=== PATIENT | female | born 1960 | race Caucasian/White ===

== ENCOUNTER → 2020-11-16 | Outpatient (CLI) | payer OTHER, SELFPAY | END | disposition home or self-care (01) | PROVIDERS: PCP Family Medicine; Referring Provider Family Medicine; Visit Provider Family Medicine | DX: I10 Essential (primary) hypertension (principal) ==

== ENCOUNTER 2024-02-06 01:12 | Emergency (ER) | payer OTHER, SELFPAY ==
[2024-02-06 01:12] VITALS: BMI 29.2
[2024-02-06 01:17] VITALS: BP 150/89; PULSE 74; RESP 19; TEMP 36.6; O2SAT 99
--- NOTE | 2024-02-06 01:21 | XR_ITS ---
Examination: CT abdomen with intravenous contrast CT pelvis with intravenous contrast 2-D coronal reconstructions 2-D sagittal reconstructions Date and time of exam:February 06, 2024 0223 hrs. Comparison September 04, 2017 Indications: Onset right lower abdominal pain beginning 7:00 PM last night. CTDI: vol (mGy) 9.74 DLP: (mGycm) 468 Technique: Multiple axial sections of the abdomen and pelvis have been obtained. 64 slice high-resolution scanner used. 3 mm axial sections have been obtained, post intravenous injection 60 cc [id number] 2-D sagittal, coronal reconstructions obtained. Low dose protocols were performed. One or more of the following dose reduction techniques were used; automated exposure control, adjustment of the mA and/or KV according to patient size, use of iterative reconstruction technique. Findings: No focal liver or splenic lesion No pancreatic mass Minimal right hydronephrosis, 2 mm calculus right ureterovesical junction Aorta normal size Normal appendix No bowel obstruction No bladder mass Impression: Minimal right hydronephrosis secondary to 2 mm distal right ureterovesical junction calculus
--- NOTE | 2024-02-06 01:22 | PD.EDRME ---
Rapid Medical Screening Exam RME Arrival date/time: 02/06/24 01:12 63-year-old female presents emergency department complaining of right lower quadrant abdominal pain that started yesterday. Chief Complaint: Abdominal Pain Vital signs: Vital Signs Temperature 97.9 F 02/06/24 01:17 Pulse Rate 74 02/06/24 01:17 Respiratory Rate 19 02/06/24 01:17 Blood Pressure 150/89 H 02/06/24 01:17 Pulse Oximetry (%) 99 02/06/24 01:17 Oxygen Delivery Method Room Air 02/06/24 01:17 Vital signs reviewed by provider: Yes
[2024-02-06] MEDS: KETOROLAC INJ 60 MG/2 ML VIAL 30 MG IM (01:43)
[2024-02-06 01:56] LABS: Basophils % (Auto) 0 % (0-2.5); Eosinophils # (Auto) 0.1 Thou/mm3 (0.0-0.5); Eosinophils % (Auto) 1 % (0-10); Hematocrit 35.4 % (36.0-46.0); Hemoglobin 11.4 g/dL (12.0-16.0); Immature Granulocytes % (Auto) 1 % (0-0); Immature Granulocytes Auto 0.12 Thou/mm3 (0.00-0.00); Lymphocytes # (Auto) 2.5 Thou/mm3 (1.0-4.8); Lymphocytes % (Auto) 28 % (10-50); Mean Corpuscular HGB Conc 32.2 g/dl (31.0-37.0); Mean Corpuscular Hemoglobin 28.6 pg (25.0-35.0); Mean Corpuscular Volume 89 fL (80-100); Monocytes # (Auto) 0.7 Thou/mm3 (0.0-0.8); Monocytes % (Auto) 8 % (0-12); Neutrophils # (Auto) 5.6 Thou/mm3 (1.8-7.7); Neutrophils % (Auto) 62 % (37-80); Nucleated Red Blood Cell % 0 /100 WBC (0); Platelet Count 303 Thou/mm3 (140-440); RDW Standard Deviation 44.4 fL (36.4-46.3); Red Blood Count 3.99 Miln/mm3 (4.00-5.20)
--- NOTE | 2024-02-06 02:02 | PD.EDABDPN ---
ED Abdominal Pain RME/HPI General Chief Complaint: Abdominal Pain Stated complaint: RLQ PAIN NAUSEA Time seen by provider: 02/06/24 01:53 Arrival date/time: 02/06/24 01:12 RME / HPI RME / HPI narrative: 02/06/24 01:12 63-year-old female presents emergency department complaining of right lower quadrant abdominal pain that started yesterday. DR. MCWILLIAMS MAIN ED EVALUATION: 63 year old female presents to the Emergency Department with complaint of right lower quadrant pain. Pain is described as aching and rated mild to moderate in severity. Associated symptoms include nausea. PMHx: Hypertension, hypercholesterolemia. Partial hysterectomy in 2002 cervix removed and tubal ligation. Family history of heart disease. Social Hx: No tobacco, alcohol, or substance use. Related Data Home Medications ?Medication ?Instructions ?Recorded ?Confirmed hydroxychloroquine 200 mg tablet 200 mg PO BID 10/29/17 06/16/23 (Plaquenil) meloxicam 15 mg tablet (Mobic) 15 mg PO QDAY 10/29/17 06/16/23 tramadol 50 mg tablet 50 mg PO TID 10/29/17 06/16/23 cyclobenzaprine 10 mg tablet 10 mg PO HS Insomnia 12/21/20 06/16/23 pentosan polysulfate sodium 100 mg 100 mg PO TID PRN Bladder Spasms 12/21/20 06/16/23 capsule (Elmiron) propranolol 80 mg tablet 80 mg PO DAILY PRN migraines 12/21/20 06/16/23 losartan 50 mg tablet 50 mg PO QDAY 04/10/23 06/16/23 Previous Rx's ?Medication ?Instructions ?Recorded ibuprofen 600 mg tablet 600 mg PO Q6H PRN pain #30 tabs 02/06/24 tamsulosin 0.4 mg capsule 0.4 mg PO QDAY #14 caps 02/06/24 Allergies Allergy/AdvReac Type Severity Reaction Status Date / Time Influenza Virus Vaccines Allergy Severe Swelling Verified 06/16/23 07:45 of Lip/Tongue/Throat Penicillins Allergy Severe Anaphylaxis Verified 06/16/23 07:45 Review of Systems Review of Systems Systems Reviewed: All systems reviewed, normal except as documented Narrative Review of Systems: GEN: No fever, no chills, no weight loss EYES: No discharge, no visual changes, no pain HEENT: No ear pain, no congestion, no sore throat PULM: No shortness of breath, no cough, no congestion CV: No chest pain, no dyspnea on exertion, no palpitations GI: + nausea, no vomiting, no diarrhea, + right lower quadrant pain, no constipation : No frequency, no urgency and no dysuria MUSC/SKEL: No joint pain, no back pain SKIN: No rash PSYCH: No hallucinations, no depression HEME/LYMPH: No easy bleeding or bruising tendencies NEURO: No weakness, no headache Past Medical History Past Medical History NEUROLOGIC: Positive Neurological Disorders and Migraine (controlled migranes) CARDIAC: Positive Hypertension GASTROINTESTINAL: Positive Ulcer GENITOURINARY: Positive Genitourinary Disorders (HYDRONEPHROSIS in past) and Kidney Stones (in past) REPRODUCTIVE: Positive Previous Pregnancies () MUSCULOSKELETAL: Positive Musculoskeletal Disorders and Arthritis ENDOCRINE: Positive Endocrine Disorders and Systemic Lupus Erythematosus PSYCHO/SOCIAL: Positive Depression (in past) OTHER HISTORY: Positive Hospitalization, Chicken Pox and Mumps Family History FAMILY HISTORY: Positive Family Respiratory Disorders (MOM-COPD), Family Cardiac Disorders (PARENTS), Family Gastrointestinal Problems (FATHER) and Family Cancer (FATHER(STOMACH)) Surgical History SURGICAL: Positive Hysterectomy (PARTIAL 2003 cervix removed) and Tubal Ligation Social History SMOKING STATUS: Never smoker SUBSTANCE USE: does not use ALCOHOL: Never ED Exam Narrative Physical exam: GENERAL APPEARANCE: alert and oriented x 4, well-developed, well-nourished, no acute distress VITALS: All vitals were reviewed and the pulse ox is 99% on room air, which is normal according to my interpretation. HEENT: Normocephalic, atraumatic; pupils equal, round, reactive to light; EOMI; mucous membranes pink, moist; oropharynx clear NECK: Supple LUNGS: CTABL; no wheezes, no rales, no rhonchi HEART: Regular rate, regular rhythm; normal S1, S2; no murmurs ABDOMEN: non distended; normal BS; soft, no tenderness, no guarding, no rebound; no masses, no organomegaly, no hernia BACK: no CVA tenderness EXTREMITIES: atraumatic; no edema NEUROLOGIC: awake; alert and oriented x4; cranial nerves II-XII grossly intact; no focal sensory or motor deficits PSYCHIATRIC: appropriate mood and affect SKIN: warm, dry, normal color; no rashes Course Quality Measures none Orders Category Date Time Status CT Screening NOW Care 02/06/24 01:[address] abdomen pelvis w con Stat Exams 02/06/24 01:21 Completed CBC Stat Lab 02/06/24 01:39 Completed CMP [Comprehensive Metabolic Panel] Stat Lab 02/06/24 01:39 Completed Lipase Stat Lab 02/06/24 01:39 Completed Urinalysis, C/S if Indicated Stat Lab 02/06/24 02:40 Completed HYDROcodone*/APAP 5/325 [[place] 5/325] Med 02/06/24 04:03 Discontinued 1 tab PO X1 ONE Ketorolac Inj [Toradol Inj] Med 02/06/24 01:21 Discontinued 30 mg IM X1 ONE Morphine Inj Med 02/06/24 02:13 Discontinued 5 mg IVP X1 ONE Ondansetron Inj [Zofran Inj] Med 02/06/24 02:13 Discontinued 4 mg IV X1 ONE Tamsulosin HCl [Flomax] Med 02/06/24 04:00 Discontinued 0.4 mg PO X1 ONE Reevaluation(s) Reevaluation #1: Patient remains clinically stable throughout the emergency department visit. Re-assessment at the time of disposition demonstrates that the patient is in no acute distress. We reviewed all the results, analysis, and treatment plans. Patient is amenable to discharge. Strict return precautions were outlined. Patient was discharged in stable condition. Time: 04:00 Vital Signs Vital signs: Vital Signs Temperature 97.9 F 02/06/24 01:17 Pulse Rate 74 02/06/24 01:17 Respiratory Rate 19 02/06/24 01:17 Blood Pressure 150/89 H 02/06/24 01:17 Pulse Oximetry (%) 99 02/06/24 01:17 Oxygen Delivery Method Room Air 02/06/24 01:17 Abdominal Pain MDM MDM Narrative MDM Narrative:: IAlicia am scribing for and in the presence of Dr. Mcwilliams. Patient data External records reviewed:: [facility] previous records (Reviewed colonoscopy note by Dr. Garvin dated 06/16/23.) Clinical information provided by:: patient Social determinants that could affect healthcare access:: none Patient has the following chronic illnesses:: Hypertension, hypercholesterolemia. Partial hysterectomy in 2002 cervix removed and tubal ligation. Family history of heart disease. How is presenting disease/condition affected by chronic disease/condition?: exacerbated by Evaluation data The following diagnostics were reviewed and interpreted by me:: lab results and radiology exam(s) Lab and/or radiology exams considered but not ordered:: none Interpretation Summary: Procedure(s): CT abdomen pelvis w con Accession Number(s): [id number] cc: Edd Stanton MD; Paul Spencer MD; Elysia Flores (CITY SECRETARY),Arjun TAVERAS~ Examination: CT abdomen with intravenous contrast CT pelvis with intravenous contrast 2-D coronal reconstructions 2-D sagittal reconstructions Date and time of exam:February 06, 2024 0223 hrs. Comparison September 04, 2017 Indications: Onset right lower abdominal pain beginning 7:00 PM last night. CTDI: vol (mGy) 9.74 DLP: (mGycm) 468 Technique: Multiple axial sections of the abdomen and pelvis have been obtained. 64 slice high-resolution scanner used. 3 mm axial sections have been obtained, post intravenous injection 60 cc [id number] 2-D sagittal, coronal reconstructions obtained. Low dose protocols were performed. One or more of the following dose reduction techniques were used; automated exposure control, adjustment of the mA and/or KV according to patient size, use of iterative reconstruction technique. Findings: No focal liver or splenic lesion No pancreatic mass Minimal right hydronephrosis, 2 mm calculus right ureterovesical junction Aorta normal size Normal appendix No bowel obstruction No bladder mass Impression: Minimal right hydronephrosis secondary to 2 mm distal right ureterovesical junction calculus Dictated By: Edd Stanton MD Medications / Prescriptions Medications or Prescriptions considered but not ordered:: none Medication administrations:: Medication Administration History Discontinued Medications Hydrocodone Bitart/Acetaminophen (Hydrocodone/Apap 5/325 Tablet) 1 tab PO X1 ONE Stop: 02/06/24 04:04 Ketorolac Tromethamine (Ketorolac Inj 60 Mg/2 Ml Vial) 30 mg IM X1 ONE Stop: 02/06/24 01:22 Last Admin: 02/06/24 01:43 Dose: 30 mg Documented By: OA Morphine Sulfate (Morphine Sulf Inj 10 Mg/Ml Vial) 5 mg IVP X1 ONE Stop: 02/06/24 02:14 Last Admin: 02/06/24 03:01 Dose: 5 mg Documented By: BB Ondansetron HCl (Ondansetron Inj 2 Mg/Ml Inj 2 Ml) 4 mg IV X1 ONE Stop: 02/06/24 02:14 Last Admin: 02/06/24 03:01 Dose: 4 mg Documented By: HUE Tamsulosin HCl (Tamsulosin Hcl 0.4 Mg Capsule) 0.4 mg PO X1 ONE Stop: 02/06/24 04:01 see above Consultations Consultation(s) initiated? (list below): No Diagnosis Differential diagnosis abdominal pain: abdominal pain, constipation, small bowel obstruction and other (appendicitis) Most likely diagnosis given after review of the tests above:: Right ureteral calculus Admission Indicated Admission indicated?: not indicated Admission Request Was there a request for admission?: No Disposition Plan Disposition Plan: Discharge Discharge Attestation Discharge Attestation: The patient and all family members were given an opportunity to ask questions and understood the discharge instructions. Discharge instructions specifically effects, indications for sooner follow up or return to the emergency department, and the expected course of current diagnosis. Patient condition: Stable Discharge Plan Plan Patient Disposition: HOME (Self Care) Prescriptions/Referrals Prescriptions/Med Rec: New tamsulosin 0.4 mg capsule 0.4 mg PO QDAY Qty: 14 0RF ibuprofen 600 mg tablet 600 mg PO Q6H PRN (Reason: pain) Qty: 30 0RF No Action meloxicam [Mobic] 15 mg tablet 15 mg PO QDAY Hold Instructions: Resume on 12/26/20. tramadol 50 mg tablet 50 mg PO TID Hold Instructions: Resume on 06/17/23. hydroxychloroquine [Plaquenil] 200 mg tablet 200 mg PO BID cyclobenzaprine 10 mg Tablet 10 mg PO HS propranolol 80 mg Tablet 80 mg PO DAILY PRN (Reason: migraines) Elmiron 100 mg Capsule 100 mg PO TID PRN (Reason: Bladder Spasms) losartan 50 mg Tablet 50 mg PO QDAY Referrals: Temporary Provider,ED [Physician] - In 1 week Problem List Clinical Impression: Right ureteral calculus Patient/Caregiver Discharge Instructions Education Materials: ED Kidney Stone w/ Colic Print Language: Singaporean Stand Alone Forms: Annie Award Info., Patient Portal Info Letter
[2024-02-06 02:09] LABS: Alanine Aminotransferase 15 U/L (10-49); Albumin, Serum 4.3 gm/dL (3.4-4.8); Albumin/Globulin Ratio 1.7 (1.2-2.2); Alkaline Phosphatase 88 U/L (46-116); Anion Gap 8 (7-16); Aspartate Amino Transferase 12 U/L (0-34); BUN/Creatinine Ratio 24 Ratio (12-20); Bilirubin,Total 0.4 mg/dL (0.3-1.2); Blood Urea Nitrogen 19 mg/dL (9-23); Calcium 9.9 mg/dL (8.3-10.6); Calcium (Corrected) 9.9 mg/dL (8.5-10.1); Carbon Dioxide 29.3 mMol/L (20.0-31.0); Chloride 106 mMol/L (98-107); Creatinine (Component) 0.8 mg/dL (0.6-1.3); Estimated Creatinine Clearance 62.7 mL/min (>60); Globulin 2.6 gm/dL (2.3-3.5); Glucose 128 mg/dL (74-106); Lipase 115 U/L (12-53); Osmolality,Calculated 289 (275-295); Sodium 143 mMol/L (136-145); Total Protein 6.9 gm/dL (5.7-8.2); eGFR > 60 See Note
[2024-02-06] MEDS: ONDANSETRON INJ 2 MG/ML INJ 2 ML 4 MG IV (03:01)
[2024-02-06] MEDS: MORPHINE SULF INJ 10 MG/ML VIAL 5 MG IVP (03:01)
[2024-02-06 03:02] LABS: Collection Type, Urine Clean Catch
[2024-02-06 03:10] LABS: Bilirubin,Urine Negative (Negative); Blood,Urine 3+ (Negative); Clarity,Urine Clear (Clear/Hazy); Color,Urine Lt-Yellow (Lt Yel-Yel); Culture Indicated,Urine Not Indicated; Glucose, Urine Negative (Negative); Ketones,Urine Negative (Negative); Leukocyte Esterase,Urine Negative (Negative); Nitrite,Urine Negative (Negative); PH,Urine 6.5 (5.0-7.0); Protein,Urine Trace (Neg - Trace); RBC,Urine 82 /hpf (0-3); Squamous Epithelial Cell,Urine < 1 /hpf (0-5); Urobilinogen,Urine Negative mg/dL (0.0-1.0); WBC,Urine 3 /hpf (0-5)
--- NOTE | 2024-02-06 03:20 | PRELIM_ITS ---
CT scan of the abdomen and pelvis with intravenous contrast (axial sections with sagittal and coronal reformats) February 06, 2024 0223 hoursClinical History: Right lower quadrant abdominal painFindings :The lung bases are clear.Thickening versus underdistention of the stomach.The stomach is distended w ith food residue. There is a 2 mm obstructing calculus at the right ureterovesical junction causing m ild hydroureteronephrosis (coronal images 73/152) and periureteric/perinephric fat stranding. The sebastian er, gallbladder, pancreas, spleen, left kidney and adrenals are unremarkable.No evidence of bowel obs truction. There are multiple colonic diverticula without evidence of diverticulitis. The appendix is within normal limits (images 63-70/152). There is no mesenteric or retroperitoneal adenopathy.The uri nary bladder is unremarkable. There is no free fluid or free air.Uterus is not visualized. There is a compression deformity of the L3 vertebral body with vertebroplasty.Postoperative changes are noted i n the lower lumbar spine.Degenerative changes are identified in the spine. Impression:No evidence of appendicitis.2 mm obstructing calculus at the right ureterovesical junction causing mild hydrouretero nephrosis. Report Electronically Signed By: Damon Cormier 02/06/2024 3:20:14 AM [EST]
--- NOTE | 2024-02-06 04:15 | PC.NURSE ---
patient given instructions and education. Patient left with spouse in a private vehicle.
[2024-02-06 04:20] VITALS: RESP 18
== END 2024-02-06 04:21 | disposition home or self-care (01) ==
PROVIDERS: Emergency Provider Emergency Medicine; PCP Family Medicine
DX: N13.2 Hydronephrosis with renal and ureteral calculous obstruction (principal)
CPT/HCPCS: 36415; 74177; 80053; 81001; 83690; 85025; 96372; 99285; A4649; J1885; J2270; J2405; Q9967

== ENCOUNTER → 2024-04-05 | Outpatient (CLI) | payer OTHER, SELFPAY ==
[2024-04-05 15:46] LABS: Amphetamine/Methamp Scrn,U Negative (Negative); Barbiturate Screen,Urine Negative (Negative); Benzodiazepines Screen,Urine Negative (Negative); Benzoylecgonine Screen, Ur Negative (Negative); Fentanyl Screen,Urine Negative (Negative); Opiate Screen,Urine Negative (Negative); THC Screen,Urine Negative (Negative)
== END | disposition home or self-care (01) ==
LOC: SLDO 14:53
PROVIDERS: PCP Family Medicine; Referring Provider Family Medicine; Visit Provider Family Medicine
DX: Z79.891 Long term (current) use of opiate analgesic (principal)
CPT/HCPCS: 80307

== ENCOUNTER → 2024-04-07 | Outpatient (BNVA) | payer OTHER, SELFPAY | END | disposition home or self-care (01) | PROVIDERS: PCP Family Medicine; Referring Provider Family Medicine; Visit Provider Urology | DX: N13.2 Hydronephrosis with renal and ureteral calculous obstruction (principal); I10 Essential (primary) hypertension; Z87.440 Personal history of urinary (tract) infections | CPT/HCPCS: 81003; 99212; G0463 ==

== ENCOUNTER → 2024-04-21 | Outpatient (CLI) | payer OTHER, SELFPAY ==
--- NOTE | 2024-04-21 | XR_ITS ---
Examination: Ribs, bilateral, with PA chest, 4 views Technique: Chest PA, RIBS AP, RPO, LPO, 4 views Exam date and time: April 21, 2024 1201 hrs. Indications: Bilateral rib pain post Heimlich procedure 5 days ago Findings: Normal heart size No pneumothorax No pulmonary contusion Prominent osteopenia No acute displaced rib fractures Impression: No pneumothorax pulmonary contusion or hemothorax No rib fractures noted
--- NOTE | 2024-04-21 | XR_ITS ---
Examination: Thoracic spine 3 views Technique one AP lateral coned lateral upper dorsal spine 3 views Exam date and time: April 21, 2024 1211 hrs. Indications: Back pain post Heimlich procedure for choking 5 days ago. Findings: Prominent osteopenia No acute thoracic fracture Partial visualization kyphoplasty L2 Impression: No acute thoracic fracture
== END | disposition home or self-care (01) ==
PROVIDERS: PCP Family Medicine; Referring Provider Family Medicine; Visit Provider Family Medicine
DX: S20.20XA Contusion of thorax, unspecified, initial encounter (principal); S20.219A Contusion of unspecified front wall of thorax, initial encounter; X58.XXXA Exposure to other specified factors, initial encounter
CPT/HCPCS: 71111; 72072

== ENCOUNTER → 2024-06-07 | Outpatient (CLI) | payer OTHER, SELFPAY ==
--- NOTE | 2024-06-07 09:40 | XR_ITS ---
Examination:Right hip AP, lateral, AP pelvis 3 views Technique: Hip AP lateral, AP pelvis, 3 views Exam date and time:June 07, 2024 1051 hours INDICATIONS: Right hip pain beginning 2 months ago. FINDINGS: Moderate osteopenia. Minimal narrowing hip joints Greater trochanteric bursitis right hip No right or left hip fracture Bones of the pelvis intact IMPRESSION: Greater trochanteric bursitis right hip Minimal narrowing hip joints.
--- NOTE | 2024-06-07 09:40 | XR_ITS ---
Examination: Lumbar spine, 5 views Technique: Lumbar spine AP, lateral, coned lateral lower lumbar spine, bilateral obliques 5 views Exam date and time: June 07, 2024 1051 hours Comparison 10/28/2022 INDICATIONS: Lower back pain 2 months, history surgery lumbar spine 2016. FINDINGS: Severe osteopenia Again noted transpedicular fusion L4-L5 with satisfactory alignment Kyphoplasty chronic osteoporotic compressed L3 vertebral body Moderate to advanced degenerative disc disease L5-S1 IMPRESSION: No acute fracture Advanced degenerative disc disease L5-S1
[2024-06-07 11:35] LABS: Basophils % (Auto) 1 % (0-2.5); Eosinophils # (Auto) 0.1 Thou/mm3 (0.0-0.5); Eosinophils % (Auto) 2 % (0-10); Hematocrit 39.1 % (36.0-46.0); Hemoglobin 12.7 g/dL (12.0-16.0); Immature Granulocytes % (Auto) 0 % (0-0); Immature Granulocytes Auto 0.01 Thou/mm3 (0.00-0.00); Lymphocytes # (Auto) 1.5 Thou/mm3 (1.0-4.8); Lymphocytes % (Auto) 40 % (10-50); Mean Corpuscular HGB Conc 32.5 g/dl (31.0-37.0); Mean Corpuscular Volume 92 fL (80-100); Monocytes # (Auto) 0.3 Thou/mm3 (0.0-0.8); Monocytes % (Auto) 9 % (0-12); Neutrophils # (Auto) 1.9 Thou/mm3 (1.8-7.7); Neutrophils % (Auto) 49 % (37-80); Nucleated Red Blood Cell % 0 /100 WBC (0); Platelet Count 239 Thou/mm3 (140-440); RDW Standard Deviation 46.5 fL (36.4-46.3); Red Blood Count 4.23 Miln/mm3 (4.00-5.20); White Blood Count 3.8 Thou/mm3 (3.6-11.0)
[2024-06-07 11:57] LABS: T4 (Thyroxine) 9.9 mcg/dL (4.5-10.9)
[2024-06-07 11:58] LABS: Alanine Aminotransferase 17 U/L (10-49); Albumin, Serum 4.3 gm/dL (3.4-4.8); Alkaline Phosphatase 89 U/L (46-116); Anion Gap 7 (7-16); Aspartate Amino Transferase 29 U/L (0-34); BUN/Creatinine Ratio 18 Ratio (12-20); Bilirubin,Total 0.6 mg/dL (0.3-1.2); Blood Urea Nitrogen 14 mg/dL (9-23); Calcium 9.1 mg/dL (8.3-10.6); Calcium (Corrected) 9.1 mg/dL (8.5-10.1); Carbon Dioxide 29.3 mMol/L (20.0-31.0); Cardiac Risk Estimate 2.1 RATIO (3.7-5.6); Chloride 108 mMol/L (98-107); Cholesterol 219 mg/dL (132-200); Creatinine (Component) 0.8 mg/dL (0.6-1.3); Globulin 2.2 gm/dL (2.3-3.5); Glucose 85 mg/dL (74-106); HDL Cholesterol 102 mg/dL (40-60); LDL Cholesterol,Calculated 104 mg/dL (0-130); Osmolality,Calculated 286 (275-295); Potassium 4.4 mMol/L (3.4-5.1); Sodium 144 mMol/L (136-145); Total Protein 6.5 gm/dL (5.7-8.2); Triglycerides 66 mg/dL (30-150); eGFR > 60 See Note
== END | disposition home or self-care (01) ==
LOC: COPL 09:21
PROVIDERS: PCP Family Medicine; Referring Provider Family Medicine; Visit Provider Family Medicine
DX: Z00.01 Encounter for general adult medical examination with abnormal findings (principal); I10 Essential (primary) hypertension; M25.551 Pain in right hip; M32.10 Systemic lupus erythematosus, organ or system involvement unspecified; M54.50 Low back pain, unspecified; R79.9 Abnormal finding of blood chemistry, unspecified
CPT/HCPCS: 36415; 72110; 73502; 80053; 80061; 84436; 84443; 85025

== ENCOUNTER 2024-07-04 10:30 | Day surgery (SDC) | payer OTHER, SELFPAY ==
--- NOTE | 2024-07-01 11:10 | EKG_ITS ---
[facility] Test Date: 2024-07-01 Pat Name: SAEID HOPKINS Department: Room: - Gender: Female Fullerette: [facility] : 1960 Requested By: Yuriy Garvin Order Number: [id number] Reading MD: Yuriy Garvin Measurements Intervals [place] Rate: 68 P: 48 CA: 131 QRS: 34 QRSD: 94 T: 41 QT: 431 QTc: 461 Interpretive Statements SINUS RHYTHM LOW QRS VOLTAGE IN PRECORDIAL LEADS [QRS DEFLECTION < 1.0 mV IN CHEST LEADS] Compared to ECG 04/09/2023 10:41:17 Low QRS voltage now present /store/S0/[id number]/ecg/[id number].pdf
[2024-07-01 11:45] LABS: Alanine Aminotransferase 15 U/L (10-49); Albumin, Serum 4.5 gm/dL (3.4-4.8); Albumin/Globulin Ratio 1.7 (1.2-2.2); Alkaline Phosphatase 102 U/L (46-116); Anion Gap 8 (7-16); Aspartate Amino Transferase 31 U/L (0-34); BUN/Creatinine Ratio 11 Ratio (12-20); Bilirubin,Total 0.6 mg/dL (0.3-1.2); Blood Urea Nitrogen 10 mg/dL (9-23); Calcium 9.2 mg/dL (8.3-10.6); Calcium (Corrected) 9.2 mg/dL (8.5-10.1); Carbon Dioxide 27.7 mMol/L (20.0-31.0); Chloride 107 mMol/L (98-107); Creatinine (Component) 0.9 mg/dL (0.6-1.3); Globulin 2.6 gm/dL (2.3-3.5); Glucose 87 mg/dL (74-106); Osmolality,Calculated 282 (275-295); Partial Thromboplastin Time 26.2 Seconds (22.0-36.0); Potassium 4.5 mMol/L (3.4-5.1); Prothrombin Time 10.9 Seconds (9.0-12.2); Sodium 143 mMol/L (136-145); Total Protein 7.1 gm/dL (5.7-8.2); eGFR > 60 See Note
[2024-07-04] VITALS (7 sets, daily range): BP systolic 120–176; BP diastolic 75–104; PULSE 76–85; RESP 12–18; TEMP 36.4–36.7; O2SAT 95–100; BMI 30.7
[2024-07-04] MEDS: RINGERS LACTATED 1000 ML 1,000 ML 20 ML IV (12:29)
--- NOTE | 2024-07-04 14:18 | SUR.PHASEII ---
1315 Pt more awake and alert. Denies pain, N/V or difficulty swallowing. Yarely PO fluids. 1335 Pt assessment unchanged. No complaints. Amb with steady gait. Able to dress self. Pt and given dc instructions. Both state understanding. Pt meets dc criteria-to home.
== END 2024-07-04 13:35 | disposition home or self-care (01) ==
PROVIDERS: PCP Family Medicine; Referring Provider Specialist; Visit Provider Specialist
PROC: (CPT 43239; principal; 2024-07-04 11:15)
DX: K22.2 Esophageal obstruction (principal); K20.90 Esophagitis, unspecified without bleeding; K29.70 Gastritis, unspecified, without bleeding; M32.9 Systemic lupus erythematosus, unspecified; Z79.899 Other long term (current) drug therapy; Z01.810 Encounter for preprocedural cardiovascular examination
CPT/HCPCS: 43248; 43239; 36415; 80053; 85610; 85730; 93005; A4649; C1769; J7120

== ENCOUNTER → 2024-07-08 | Outpatient (BNVA) | payer OTHER, SELFPAY | END | disposition home or self-care (01) | PROVIDERS: PCP Family Medicine; Referring Provider Family Medicine; Visit Provider Urology | DX: R35.0 Frequency of micturition (principal); R30.0 Dysuria; R39.198 Other difficulties with micturition; R33.9 Retention of urine, unspecified; I10 Essential (primary) hypertension | CPT/HCPCS: 81003; 99212; G0463 ==

== ENCOUNTER → 2024-08-11 | Outpatient (CLI) | payer OTHER, SELFPAY ==
--- NOTE | 2024-08-11 09:30 | XR_ITS ---
Examination: Breast ultrasound, unilateral, right complete Date and time of exam: 08/11/2024 0948 hours INDICATIONS: Right breast sonogram September 16, 2023 9:00 nodule with breast biopsy marker 13 x 5 x 8 mm Technique: Real-time be scale ultrasonographic imaging performed right breast including all 4 quadrants as well as nipple retroareolar and axillary region. Findings: 10:00 circumscribed nodule 10 x 4 x 8 mm IMPRESSION: BI-RADS Category 2: Benign findings
--- NOTE | 2024-08-11 10:00 | XR_ITS ---
Examination: Screening digital mammography, bilateral Computer aided detection 3-D breast Tomosynthesis, bilateral Date and time of exam: August 11, 2024 1006 hours Compared to mammograms dating to September 27, 2018 Indication: Screening Technique: Nonmagnified MLO, CC views of the breasts to been obtained, reconstructed from 3-D Tomosynthesis images. R2 computer aided detection program utilized for evaluation of suspicious masses and/or abnormal calcifications. 3-D Tomosynthesis images obtained. Findings: Scattered areas of fat density Breast biopsy marker upper outer right breast 6 mm focal asymmetry outer left breast CC view, 7.2 cm multiple Impression: Category 0: Incomplete: Need additional imaging evaluation 6 mm focal asymmetry outer left breast CC view, 7 2 cm from the nipple Recommend follow-up spot tomographic views upper outer quadrant left breast left breast sonography to complete workup
== END | disposition home or self-care (01) ==
PROVIDERS: PCP Family Medicine; Referring Provider Family Medicine; Visit Provider Family Medicine
DX: Z12.31 Encounter for screening mammogram for malignant neoplasm of breast (principal); N64.89 Other specified disorders of breast
CPT/HCPCS: 76641; 77063; 77067

== ENCOUNTER → 2024-08-22 | Outpatient (BNVA) | payer OTHER, SELFPAY | END | disposition home or self-care (01) | PROVIDERS: PCP Family Medicine; Referring Provider Family Medicine; Visit Provider Urology | DX: N32.89 Other specified disorders of bladder (principal); N35.92 Unspecified urethral stricture, female; I10 Essential (primary) hypertension; M32.9 Systemic lupus erythematosus, unspecified; G89.4 Chronic pain syndrome; R10.2 Pelvic and perineal pain | CPT/HCPCS: 52224; 81003; 96372; A4217; A4649; C1894; J1580; A9270 ==

== ENCOUNTER → 2024-09-01 | Outpatient (CLI) | payer OTHER, SELFPAY ==
--- NOTE | 2024-09-01 | XR_ITS ---
Examination: Knee, right , 3 views Technique: Knee AP, lateral, oblique 3 views Date and time of exam: September 01, 2024 1223 hours INDICATIONS: Patient fell one month ago with injury to the knee, knee pain. FINDINGS: Moderate osteopenia. No fracture or dislocation. Moderate to advanced medial joint space IMPRESSION: No fracture or dislocation
--- NOTE | 2024-09-01 12:30 | XR_ITS ---
Examination: Breast ultrasound, unilateral, left complete Date and time of exam: September 01, 2024 1137 hours INDICATIONS: Mammogram August 11, 2024 6 mm focal asymmetry outer left breast Technique: Real-time be scale ultrasonographic imaging performed left breast including all 4 quadrants as well as nipple retroareolar and axillary region. Findings: No cystic or solid mass IMPRESSION: BI-RADS Category 1: Negative study
--- NOTE | 2024-09-01 13:15 | XR_ITS ---
Examination: Diagnostic digital mammography, unilateral, left Computer aided detection 3-D breast Tomosynthesis, unilateral Date and time of exam: September 01, 2024 1149 hours INDICATIONS: Mammogram 04/13/2024 6 mm focal asymmetry outer left breast 7.2 cm the nipple Technique: Nonmagnified MLO, CC views of the left breast have been obtained, reconstructed from 3-D Tomosynthesis images. R2 computer aided detection program utilized for evaluation of suspicious masses and/or abnormal calcifications. 3-D Tomosynthesis images obtained. Findings: Scattered areas of fibroglandular density. No suspicious mass is depicted on the spot compression views Impression: BI-RADS category 2: Benign findings Return to yearly follow-up mammography
== END | disposition home or self-care (01) ==
PROVIDERS: PCP Nurse Practitioner Family; Referring Provider Nurse Practitioner Family; Visit Provider Nurse Practitioner Family
DX: R92.322 Mammographic fibroglandular density, left breast (principal)
CPT/HCPCS: 73562; 76641; 77061; 77065; G0279

== ENCOUNTER 2024-10-05 07:25 | Day surgery (SDC) | payer OTHER, SELFPAY ==
[2024-10-04 09:11] VITALS: BMI 30.8
[2024-10-04 11:36] LABS: Alanine Aminotransferase 11 U/L (10-49); Albumin, Serum 4.3 gm/dL (3.4-4.8); Albumin/Globulin Ratio 1.9 (1.2-2.2); Alkaline Phosphatase 93 U/L (46-116); Anion Gap 8 (7-16); Aspartate Amino Transferase 27 U/L (0-34); BUN/Creatinine Ratio 19 Ratio (12-20); Bilirubin,Total 0.5 mg/dL (0.3-1.2); Blood Urea Nitrogen 17 mg/dL (9-23); Calcium 9.2 mg/dL (8.3-10.6); Calcium (Corrected) 9.2 mg/dL (8.5-10.1); Carbon Dioxide 27.0 mMol/L (20.0-31.0); Chloride 107 mMol/L (98-107); Creatinine (Component) 0.9 mg/dL (0.6-1.3); Estimated Creatinine Clearance 56.5 mL/min (>60); Globulin 2.3 gm/dL (2.3-3.5); Glucose 74 mg/dL (74-106); Osmolality,Calculated 283 (275-295); Potassium 4.4 mMol/L (3.4-5.1); Sodium 142 mMol/L (136-145); Total Protein 6.6 gm/dL (5.7-8.2); eGFR > 60 See Note
[2024-10-05] VITALS (9 sets, daily range): BP systolic 123–148; BP diastolic 72–99; PULSE 75–98; RESP 12–20; TEMP 36.3–36.4; O2SAT 98–100; BMI 29.8
--- NOTE | 2024-10-05 08:20 | CHAP ---
Spoke briefly with patient giving encouragement and prayer.
[2024-10-05] MEDS: RINGERS LACTATED 1000 ML 1,000 ML 20 ML IV (08:28)
--- NOTE | 2024-10-05 11:03 | SUR.PHASEI ---
1101 patient arrived to recovery resting comfortably in [facility], on oxygen 2L via nasal cannula, breathing unlabored, vital signs stable, denies pain, urinary catheter 16F in place with leg secure, pink urine in matos bag, denies nausea, report received from Chuy ELAINE and Dr. Meyer
--- NOTE | 2024-10-05 11:19 | PD.SUROPNT ---
Date of Procedure 10/05/24 Pre Op Diagnosis Chronic pelvic pain syndrome, incomplete bladder emptying, urethral stenosis interstitial cystitis Post Op Diagnosis Same plus severe interstitial cystitis and bladder ulcers Procedure Cystoscopic examination urethral dilation, [place] dilation for diagnostic and therapeutic purposes biopsy and fulguration of the lesion and fulguration of bladder ulcers and placement of a Johnson catheter Findings Urethral stenosis, bladder ulcers and interstitial cystitis Procedure Description Indication for procedure this is a 64-year-old female she has chronic pelvic pain syndrome with a history of endometriosis. Patient has history of urethral stenosis had dilation in the past. Patient was recommended above procedure procedure and complications were discussed with patient in great detail informed consent is obtained this is a 64-year-old female she was brought to the operating room in a satisfactory condition after appropriate premedication. She was appropriately identified by surgeon and operating room staff site scope and indication of the procedure were reconfirmed with the patient The patient received 160 mg Gentamicin IV pre-op prophylaxis. General anesthesia was given uneventfully patient was positioned in a dorsolithotomy position. The patient was prepped in a sterile manner. Local anesthetic was placed in the urethra. Cystoscopy was then performed. The urethra had no intrinsic lesions. Bladder was filled with 300 cc of water emptied and cystoscopy was done again this revealed severe interstitial cystitis and bladder ulcers biopsy was obtained fulguration was done and fulguration of the ulcers were done as well further examination of the bladder revealed no evidence of cancerous lesions, papillary or polyp type, lesions or stones. Both ureters were putting out clear urine. The urethra had mid urethral stenosis and the urethra was dilated up to 30Fr with dilators. The bladder was completely drained and the scope was removed. The patient tolerated the procedure well. #16 Johnson catheter was inserted patient was sent to recovery room in a satisfactory condition post-op instructions were given. The patient is to call the office should any problems occur. Anesthesia GETA Pathology / specimen Other (Bladder biopsy) Estimated Blood Loss 0.5 Condition Stable Disposition PACU Surgeon Maki Heard MD Surgical Staff Operation Date: 10/05/24 09:45 Case Staff Anesthesiologist: Padilla Meyer
--- NOTE | 2024-10-05 12:34 | SUR.PHASEII ---
1234 Patient meets discharge criteria from recovery, awake and alert, breathing unlabored, vital signs stable, denies pain and nausea, assisted with dressing into her clothing by her , discharge instructions given to patient and patients , and patient both educated on home care for catheter; both receptive, signed discharge instructions. Patient given all her belongings prior to discharge, transported via wheelchair and left in a private vehicle.
== END 2024-10-05 12:34 | disposition home or self-care (01) ==
PROVIDERS: Anesthesiology; PCP Family Medicine; Referring Provider Urology; Visit Provider Urology
PROC: 0T7B8ZZ Dilation of Bladder, Via Natural or Artificial Opening Endoscopic (ICD-10-PCS; CPT 52224; principal; 2024-10-05 09:30)
DX: N30.10 Interstitial cystitis (chronic) without hematuria (principal); N35.92 Unspecified urethral stricture, female; G89.4 Chronic pain syndrome; R10.2 Pelvic and perineal pain
CPT/HCPCS: 52224; 36415; 80053; A4217; A4649; J0131; J1580; J1885; J2250; J2704; J3010; J3490; J7120

== ENCOUNTER → 2024-10-12 | Outpatient (CLI) | payer OTHER, SELFPAY ==
--- NOTE | 2024-10-12 13:00 | XR_ITS ---
Examination: Steroid injection greater trochanteric bursa right hip with imaging guidance Fluoroscopy AP right hip single view. Exam date and time: October 12, 2024 1228 hours INDICATIONS: Greater trochanteric bursitis right hip pain months Informed consent provided. Technique: A timeout was completed verifying correct patient, procedure, site, positioning. The patient was placed in supine position appropriate for the steroid injection The patient's site was prepped and draped in sterile fashion 5 cc 1% lidocaine administered locally for anesthesia. Sterile drape applied, maximum barrier sterile technique. Utilizing fluoroscopic guidance, 23-gauge needle placed in the bursa 1 cc enlarged 40 in 5 cc 0.25% Marcaine introduced into the bursa The patient was in satisfactory and stable condition on completion of the procedure Attending radiologist was present for the entire procedure Estimated blood loss 0 cc. Impression: Successful steroid injection greater trochanteric bursa right hip with imaging guidance Fluoroscopy 0.1 minute radiation dose 1.14 milligray 1 spot fluoroscopic AP right hip film .
[2024-10-12] MEDS: BUPIVACAINE MPF 0.25% 30 ML VIAL EPID (13:10)
[2024-10-12] MEDS: TRIAMCINOLONE ACET INJ 40 MG/ML VIAL IM (13:23)
== END | disposition home or self-care (01) ==
LOC: SIRX 12:40
PROVIDERS: PCP Family Medicine; Referring Provider Family Medicine; Visit Provider Family Medicine
DX: M70.61 Trochanteric bursitis, right hip (principal)
CPT/HCPCS: 20610; 77002; J3301; J3490; J0665

== ENCOUNTER → 2024-10-17 | Outpatient (CLI) | payer OTHER, SELFPAY ==
[2024-10-17 13:54] LABS: Alanine Aminotransferase 11 U/L (10-49); Albumin, Serum 4.3 gm/dL (3.4-4.8); Albumin/Globulin Ratio 2.0 (1.2-2.2); Alkaline Phosphatase 97 U/L (46-116); Anion Gap 9 (7-16); Aspartate Amino Transferase 21 U/L (0-34); BUN/Creatinine Ratio 21 Ratio (12-20); Bilirubin,Total 0.5 mg/dL (0.3-1.2); Blood Urea Nitrogen 19 mg/dL (9-23); Calcium 9.8 mg/dL (8.3-10.6); Calcium (Corrected) 9.8 mg/dL (8.5-10.1); Carbon Dioxide 26.7 mMol/L (20.0-31.0); Chloride 106 mMol/L (98-107); Creatinine (Component) 0.9 mg/dL (0.6-1.3); Globulin 2.2 gm/dL (2.3-3.5); Glucose 86 mg/dL (74-106); Osmolality,Calculated 284 (275-295); Potassium 3.9 mMol/L (3.4-5.1); Sodium 142 mMol/L (136-145); Total Protein 6.5 gm/dL (5.7-8.2); eGFR > 60 See Note
== END | disposition home or self-care (01) ==
LOC: COPL 12:09
PROVIDERS: PCP Family Medicine; Referring Provider Family Medicine; Visit Provider Family Medicine
DX: N30.00 Acute cystitis without hematuria (principal)
CPT/HCPCS: 36415; 80053

== ENCOUNTER → 2024-11-21 | Outpatient (BNVA) | payer OTHER, SELFPAY | END | disposition home or self-care (01) | PROVIDERS: PCP Family Medicine; Referring Provider Family Medicine; Visit Provider Urology | DX: N30.10 Interstitial cystitis (chronic) without hematuria (principal); N32.81 Overactive bladder; M32.9 Systemic lupus erythematosus, unspecified | CPT/HCPCS: 81003; 99212; G0463 ==